=== PATIENT | female | born 1995 | race Caucasian/White ===

== ENCOUNTER 2020-07-12 01:54 | Emergency (ER) | payer OTHER ==
[~2020-07-12] VITALS: Ht 152.4 cm; Wt 70.3 kg
[2020-07-12] MEDS ORDERED: STELARA90 MG/1 ML (02:19)
[2020-07-12] MEDS ORDERED: PEPCID AC20 MG PO (10:22)
[2020-07-12] MEDS ORDERED: ASACOL HD800 MG PO (10:22)
[2020-07-12] MEDS ORDERED: PERCOCET 5-3251 EACH PO (10:22)
[2020-07-12] MEDS ORDERED: ONDANSETRON ODT4 MG PO (10:22)
[2020-07-12] MEDS ORDERED: INTESTINEX680 M1 PO (10:22)
[2020-07-12] MEDS ORDERED: LEVSIN/SL0.125 MG PO (10:22)
== END 2020-07-12 10:31 | disposition home or self-care (01) ==
LOC: ER 01:54
DX: K50.90 Crohn's disease, unspecified, without complications (principal); R10.32 Left lower quadrant pain; R11.2 Nausea with vomiting, unspecified